=== PATIENT | male | born 1940 | race Native Hawaiian/Other Pacific Islander ===

== ENCOUNTER 2017-11-16 23:03 | Inpatient (IN) | payer MEDICARE, MEDICAID ==
[2017-11-16] MEDS ORDERED: Sodium Chloride 0.9% 1,000 ML IV ONE (23:46)
[2017-11-16 23:47] VITALS: BMI 26.9
--- NOTE | 2017-11-17 00:04 | C.PDOC ---
History Of Present Illness 77 year old male presents to the ED with chief complaint of chronic diarrhea for over 1 month. He has 4-5 episodes daily of watery stool. Associated with abdominal distension and discomfort that is relieved by passing gas. Now complaining of a low grade fever. Patient was seen by Dr. Perez in the office and had full evaluation including cultures, parasite, C diff, which was all negative. + occult blood in stool. Patient is scheduled for colonoscopy at the end of this month. Family brought him in tonight due to 10 lb weight loss since last week associated with fatigue and lightheadednes. He denies nausea or vomiting but patient has lost his appetite and feels dizzy when he gets up. Taking imodium without improvement. Time Seen by Provider: 11/16/17 23:33 Chief Complaint (Nursing): GI Problem History Per: Patient, Family History/Exam Limitations: no limitations Onset/Duration Of Symptoms: Days (> 1 month) Current Symptoms Are (Timing): Still Present Past Medical History Reviewed: Historical Data, Nursing Documentation, Vital Signs Vital Signs: Last Vital Signs Temp 98.6 F 11/17/17 00:00 Pulse 98 H 11/17/17 00:00 Resp 20 11/17/17 00:00 BP 157/72 H 11/17/17 00:00 Pulse Ox 98 11/17/17 00:00 - Medical History PMH: Diabetes, HTN, Hypercholesterolemia, Hyperlipidemia, End Stage Renal Disease - [facility] Procedures CORONAR ARTERIOGR-2 CATH (11/29/05) LEFT HEART CARDIAC CATH (11/29/05) LT HEART ANGIOCARDIOGRAM (11/29/05) Family History: States: No Known Family Hx - Social History Hx Tobacco Use: No Hx Alcohol Use: No Hx Substance Use: No - Immunization History Hx Tetanus Toxoid Vaccination: No Hx Influenza Vaccination: No Hx Pneumococcal Vaccination: No Review Of Systems Except As Marked, All Systems Reviewed And Found Negative. Constitutional: Positive for: Fever, Weight loss, Other (loss of appetite) Cardiovascular: Negative for: Chest Pain Respiratory: Negative for: Shortness of Breath Gastrointestinal: Positive for: Abdominal Pain (discomfort and distension), Diarrhea, Hematochezia. Negative for: Nausea, Vomiting Neurological: Positive for: Dizziness Physical Exam - Physical Exam Appears: No Acute Distress Skin: Dry, Pale, Other (poor turgor) Head: Atraumatic, Normacephalic Eye(s): bilateral: Normal Inspection, PERRL, EOMI Oral Mucosa: Dry Neck: Normal ROM, Supple Chest: Symmetrical Cardiovascular: Rhythm Regular (slightly tachy), No Murmur Respiratory: Normal Breath Sounds, No Rales, No Rhonchi, No Wheezing Gastrointestinal/Abdominal: Soft, No Tenderness, No Guarding, No Rebound Extremity: Bilateral: Atraumatic, Normal ROM Pulses: Left Dorsalis Pedis: Normal, Right Dorsalis Pedis: Normal Neurological/Psych: Oriented x3, Normal Speech ED Course And Treatment - Laboratory Results Result Diagrams: 11/16/17 23:55 11/16/17 23:55 Lab Interpretation: Abnormal (Hgb 11.1m HCO3 16, BUN 32, Cr 1.9) Progress Note: Ordered labs including stool culture. Patient given IVF hydration Reevaluation Time: 00:32 Reassessment Condition: Improved - Physician Consult Information Time Consulting Physician Contacted: 00:32 Physician Contacted: Lori Macario Outcome Of Conversation: Patient to be admitted for rehydration. Disposition - Disposition Disposition: HOSPITALIZED Disposition Time: 00:32 Condition: FAIR - POA Present On Arrival: None - Clinical Impression Clinical Impression: Diarrhea, Dehydration - Scribe Statement The provider has reviewed the documentation as recorded by the Murali Bagley Provider Attestation: All medical record entries made by the Murali were at my direction and personally dictated by me. I have reviewed the chart and agree that the record accurately reflects my personal performance of the history, physical exam, medical decision making, and the department course for this patient. I have also personally directed, reviewed, and agree with the discharge instructions and disposition.
[2017-11-17 00:11] LABS: BASO % 0.3 % (0.0-2.0); EOS % 0.1 % (0.0-4.0); HEMOGLOBIN 11.1 g/dL (12.0-18.0); LYMPH # 1.3 K/uL (1.0-4.3); LYMPH % 13.1 % (20.0-40.0); MEAN CELL VOLUME 94.9 fL (80.0-94.0); MEAN CORPUSCULAR HEMOGLOBIN 32.9 pg (27.0-31.0); MEAN CORPUSCULAR HGB CONC 34.7 g/dL (33.0-37.0); MEAN PLATELET VOLUME 7.2 fL (7.2-11.7); MONO # 1.4 K/uL (0.0-0.8); MONO % 14.5 % (0.0-10.0); NEUT # 7.2 K/uL (1.8-7.0); RBC 3.39 Mil/uL (4.40-5.90); RED CELL DISTRIBUTION WIDTH 13.1 % (11.5-14.5)
[2017-11-17 00:23] LABS: ALB/GLOB RATIO 0.9 (1.0-2.1); ALBUMIN 3.6 g/dL (3.5-5.0); CALCIUM 8.9 mg/dl (8.6-10.4)
[2017-11-17 07:31] LABS: URINE BILIRUBIN NEGATIVE (NEGATIVE); URINE BLOOD 3+ (NEGATIVE); URINE CLARITY Hazy (Clear); URINE COLOR Yellow (YELLOW); URINE GLUCOSE (UA) NORMAL (Normal); URINE LEUKOCYTE ESTERASE NEG Leu/uL (Negative); URINE PROTEIN 2+ mg/dL (NEGATIVE); URINE UROBILINOGEN NORMAL mg/dL (0.2-1.0)
[2017-11-17 07:32] LABS: URINE BACTERIA RARE (<OCC)
[2017-11-17 07:53] LABS: CALCIUM 8.3 mg/dl (8.6-10.4)
[2017-11-17 08:08] LABS: FREE T4 0.86 ng/dL (0.78-2.19)
--- NOTE | 2017-11-17 09:01 | CP.PCM.CON ---
<Jean Paul Gregory - Last Filed: 11/17/17 18:25> History of Present Illness - History of Present Illness History of Present Illness: PGY5 GI Fellow Consult Note Patient is a 77yo male with PMHx significant for DM, CAD s/p CABG and PCI, complicated diverticulitis s/p partial colectomy who presented to the hospital for persistent diarrhea and weight loss. The patient is currently accompanied by his and two daughters. Patient traveled to the [facility] in early September and during trip developed loose watery stool 4-6 times per day. He treated his symptoms with immodium with some relief however symptoms have persisted requiring ongoing Immodium use daily. He was evaluated by his primary medical aides teacher, Dr Perez, with stool cultures and thusfar results are unremarkable. Patient was scheduled for EGD/Colonoscopy at the end of this month however family noted a 10lb weight loss in the past two weeks and decided to have him brought in to the ED for further evaluation. Currently, he admits to continued loose, watery stool 4-6 times per day with or without eating, has decreased appetite and chills. He denies any overt rectal bleeding, nausea, vomiting and has never had symptoms like this previously. Denies any recent antibiotic use or OTC medications/NSAIDs. PMHx: See HPI, also cataracts and glaucoma PSHx: partial colectomy (2002), CABG (1993), PCIx2 (2003), B/L lens replacement FHx: Sister - aneurysm; Brother - lung cancer Social: Former tobacco use (quit in 1988), denies EtOH or illicit drug use Endo: EGD/Colonoscopy - 2014 - colon polyps noted 12 system ROS performed and negative except where stated. Past Patient History - Past Medical History & Family History Past Medical History?: Yes - Past Social History Smoking Status: Never Smoked - CARDIAC Hx Cardiac Disorders: Yes Hx Hypercholesterolemia: Yes Hx Hypertension: Yes - PULMONARY Hx Respiratory Disorders: No - NEUROLOGICAL Hx Neurological Disorder: No - HEENT Hx HEENT Problems: Yes Hx Cataracts: Yes Hx Glaucoma: Yes Other/Comment: lens implant - RENAL Hx Chronic Kidney Disease: No - ENDOCRINE/METABOLIC Hx Endocrine Disorders: Yes Hx Diabetes Mellitus Type 2: Yes - HEMATOLOGICAL/ONCOLOGICAL Hx Blood Disorders: No - INTEGUMENTARY Hx Dermatological Problems: No - MUSCULOSKELETAL/RHEUMATOLOGICAL Hx Falls: No - GASTROINTESTINAL Hx Gastrointestinal Disorders: No - GENITOURINARY/GYNECOLOGICAL Hx Genitourinary Disorders: No - PSYCHIATRIC Hx Substance Use: No - SURGICAL HISTORY Hx Surgeries: No Hx Cholecystectomy: Yes Hx Coronary Artery Bypass Graft: Yes (3 bypass) Other/Comment: stent placement, colectomy 2002, gallbladder, colonoscopy 2014 - ANESTHESIA Hx Anesthesia: No Hx Anesthesia Reactions: No Hx Malignant Hyperthermia: No Has any member of the family had a problem w/ anesthesia?: No Meds Allergies/Adverse Reactions: Allergies Allergy/AdvReac Type Severity Reaction Status Date / Time Penicillins Allergy Verified 11/16/17 23:19 Sulfa (Sulfonamide Allergy Verified 11/16/17 23:19 Antibiotics) - Medications Medications: Current Medications Amlodipine Besylate (Norvasc) 5 mg PO DAILY [facility] Aspirin (Aspirin Chewable) 81 mg PO DAILY [facility] Carvedilol (Coreg) 25 mg PO BID PAL Glimepiride (Amaryl) 1 mg PO DAILY [facility] Heparin Sodium (Porcine) (Heparin) 5,000 units SC Q12 PAL Home Med (Patient's Own Drops) 0 drop OU HS PAL Sodium Chloride (Sodium Chloride 0.45%) 1,000 mls @ 80 mls/hr IV .[id number] PAL Lactobacillus Acidophilus (Bacid Acidophilus) 1 cap PO BID PAL Losartan Potassium (Cozaar) 50 mg PO DAILY PAL Physical Exam - Constitutional Appears: Non-toxic, No Acute Distress - Eye Exam Eye Exam: EOMI, PERRL - ENT Exam ENT Exam: Mucous Membranes Dry - Respiratory Exam Respiratory Exam: Clear to Auscultation Bilateral. absent: Rales, Rhonchi, Wheezes - Cardiovascular Exam Cardiovascular Exam: RRR, +S1, +S2 - GI/Abdominal Exam GI & Abdominal Exam: Normal Bowel Sounds, Soft. absent: Distended, Firm, Guarding, Organomegaly, Rigid, Tenderness - Extremities Exam Extremities exam: Positive for: normal inspection. Negative for: pedal edema, tenderness - Neurological Exam Neurological exam: Alert, Oriented x3 - Psychiatric Exam Psychiatric exam: Normal Affect, Normal Mood - Skin Skin Exam: Dry, Warm Additional comments: healed midline abdominal surgical scar; healed CABG scar Results - Vital Signs Recent Vital Signs: Last Vital Signs Temp 99.9 F H 11/17/17 08:10 Pulse 89 11/17/17 08:10 Resp 20 11/17/17 08:10 BP 143/68 11/17/17 08:10 Pulse Ox 97 11/17/17 08:10 - Labs Result Diagrams: 11/16/17 23:55 11/17/17 07:27 Labs: Laboratory Results - last 24 hr 11/16/17 11/16/17 11/16/17 23:26 23:55 23:55 WBC 10.0 RBC 3.39 L Hgb 11.1 L Hct 32.2 L MCV 94.9 H MCH 32.9 H MCHC 34.7 RDW 13.1 Plt Count 290 MPV 7.2 Neut % (Auto) 72.0 Lymph % (Auto) 13.1 L Pettis % (Auto) 14.5 H Eos % (Auto) 0.1 Baso % (Auto) 0.3 Neut # (Auto) 7.2 H Lymph # (Auto) 1.3 Pettis # (Auto) 1.4 H Eos # (Auto) 0.0 Baso # (Auto) 0.0 Sodium 136 Potassium 5.1 Chloride 105 Carbon Dioxide 16 L Anion Gap 20 BUN 32 H Creatinine 1.9 H Est GFR ( Amer) 42 Est GFR (Non-Af Amer) 34 POC Glucose (mg/dL) 168 H Random Glucose 153 H Hemoglobin A1c Calcium 8.9 Total Bilirubin 0.6 AST 19 ALT 17 L Alkaline Phosphatase 103 Total Protein 7.7 Albumin 3.6 Globulin 4.1 H Albumin/Globulin Ratio 0.9 L Lipase 248 Free T4 TSH 3rd Generation Urine Color Urine Clarity Urine pH Ur Specific [place] Urine Protein Urine Glucose (UA) Urine Ketones Urine Blood Urine Nitrate Urine Bilirubin Urine Urobilinogen Ur Leukocyte Esterase Urine WBC (Auto) Urine RBC (Auto) Urine Bacteria Hyaline Casts 11/17/17 11/17/17 11/17/17 06:28 06:57 07:27 WBC RBC Hgb Hct MCV MCH MCHC RDW Plt Count MPV Neut % (Auto) Lymph % (Auto) Pettis % (Auto) Eos % (Auto) Baso % (Auto) Neut # (Auto) Lymph # (Auto) Pettis # (Auto) Eos # (Auto) Baso # (Auto) Sodium 136 Potassium 4.9 Chloride 109 H Carbon Dioxide 18 L Anion Gap 14 BUN 26 H Creatinine 1.5 Est GFR ( Amer) 55 Est GFR (Non-Af Amer) 45 POC Glucose (mg/dL) 99 Random Glucose 98 Hemoglobin A1c Calcium 8.3 L Total Bilirubin AST ALT Alkaline Phosphatase Total Protein Albumin Globulin Albumin/Globulin Ratio Lipase Free T4 TSH 3rd Generation Urine Color Yellow Urine Clarity Hazy Urine pH 5.0 Ur Specific [place] 1.013 Urine Protein 2+ H Urine Glucose (UA) Normal Urine Ketones Negative Urine Blood 3+ H Urine Nitrate Negative Urine Bilirubin Negative Urine Urobilinogen Normal Ur Leukocyte Esterase Neg Urine WBC (Auto) 2 Urine RBC (Auto) 25 H Urine Bacteria Rare Hyaline Casts 3-5 H 11/17/17 11/17/17 07:27 07:27 WBC RBC Hgb Hct MCV MCH MCHC RDW Plt Count MPV Neut % (Auto) Lymph % (Auto) [place] % (Auto) Eos % (Auto) Baso % (Auto) Neut # (Auto) Lymph # (Auto) Pettis # (Auto) Eos # (Auto) Baso # (Auto) Sodium Potassium Chloride Carbon Dioxide Anion Gap BUN Creatinine Est GFR ( Amer) Est GFR (Non-Af Amer) POC Glucose (mg/dL) Random Glucose Hemoglobin A1c 6.2 Calcium Total Bilirubin AST ALT Alkaline Phosphatase Total Protein Albumin Globulin Albumin/Globulin Ratio Lipase Free T4 0.86 TSH 3rd Generation 0.79 Urine Color Urine Clarity Urine pH Ur Specific [place] Urine Protein Urine Glucose (UA) Urine Ketones Urine Blood Urine Nitrate Urine Bilirubin Urine Urobilinogen Ur Leukocyte Esterase Urine WBC (Auto) Urine RBC (Auto) Urine Bacteria Hyaline Casts Assessment & Plan - Assessment and Plan (Free Text) Assessment: Patient is a 77yo male with PMHx significant for DM, CAD s/p CABG and PCI, complicated diverticulitis s/p partial colectomy who presented to the hospital for persistent diarrhea and weight loss -Chronic diarrhea -Unintentional weight loss -H/O complicated diverticulitis with partial colectomy -DM -CAD Plan: -Stool infectious work up: Culture, C diff, giardia, O&P -Check fecal leukocytes, osmolality and electrolytes -Positive FOBT as outpatient -CT abdomen and pelvis with PO contrast -Recommend empiric coverage with Cipro/Flagyl -Liquid diet today -Patient would benefit from EGD/Colonoscopy if symptoms persist despite therapy - Date & Time Date: 11/17/17 Time: 08:45 <Young Ceballos - Last Filed: 11/17/17 18:36> Meds - Medications Medications: Current Medications Amlodipine Besylate (Norvasc) 5 mg PO DAILY [facility] Last Admin: 11/17/17 11:00 Dose: Not Given Aspirin (Aspirin Chewable) 81 mg PO DAILY [facility] Last Admin: 11/17/17 13:38 Dose: 81 mg Carvedilol (Coreg) 25 mg PO BID [facility] Last Admin: 11/17/17 17:34 Dose: 25 mg Glimepiride (Amaryl) 1 mg PO DAILY [facility] Last Admin: 11/17/17 10:52 Dose: 1 mg Heparin Sodium (Porcine) (Heparin) 5,000 units SC Q12 [facility] Last Admin: 11/17/17 11:00 Dose: Not Given Home Med (Patient's Own Drops) 0 drop OU HS [facility] Sodium Chloride (Sodium Chloride 0.45%) 1,000 mls @ 80 mls/hr IV .[id number] [facility] Last Admin: 11/17/17 15:30 Dose: Not Given Ciprofloxacin (Cipro 200mg/100ml D5w) 100 mls @ 67 mls/hr IVPB Q12H [facility] PRN Reason: Protocol Last Admin: 11/17/17 16:00 Dose: 67 mls/hr Metronidazole (Flagyl) 500 mg in 100 mls @ 100 mls/hr IVPB Q8 PAL PRN Reason: Protocol Lactobacillus Acidophilus (Bacid Acidophilus) 1 cap PO BID [facility] Last Admin: 11/17/17 17:34 Dose: 1 cap Losartan Potassium (Cozaar) 50 mg PO DAILY [facility] Last Admin: 11/17/17 10:52 Dose: 50 mg Results - Vital Signs Recent Vital Signs: Last Vital Signs Temp 97.7 F 11/17/17 15:33 Pulse 62 11/17/17 15:33 Resp 20 11/17/17 15:33 BP 126/67 11/17/17 17:34 Pulse Ox 97 11/17/17 15:33 - Labs Result Diagrams: 11/16/17 23:55 11/17/17 07:27 Labs: Laboratory Results - last 24 hr 11/16/17 11/16/17 11/16/17 23:26 23:55 23:55 WBC 10.0 RBC 3.39 L Hgb 11.1 L Hct 32.2 L MCV 94.9 H MCH 32.9 H MCHC 34.7 RDW 13.1 Plt Count 290 MPV 7.2 Neut % (Auto) 72.0 Lymph % (Auto) 13.1 L Pett[place] % (Auto) 14.5 H Eos % (Auto) 0.1 Baso % (Auto) 0.3 Neut # (Auto) 7.2 H Lymph # (Auto) 1.3 Pettis # (Auto) 1.4 H Eos # (Auto) 0.0 Baso # (Auto) 0.0 Sodium 136 Potassium 5.1 Chloride 105 Carbon Dioxide 16 L Anion Gap 20 BUN 32 H Creatinine 1.9 H Est GFR ( Amer) 42 Est GFR (Non-Af Amer) 34 POC Glucose (mg/dL) 168 H Random Glucose 153 H Hemoglobin A1c Calcium 8.9 Total Bilirubin 0.6 AST 19 ALT 17 L Alkaline Phosphatase 103 Total Protein 7.7 Albumin 3.6 Globulin 4.1 H Albumin/Globulin Ratio 0.9 L Lipase 248 Free T4 TSH 3rd Generation Urine Color Urine Clarity Urine pH Ur Specific [place] Urine Protein Urine Glucose (UA) Urine Ketones Urine Blood Urine Nitrate Urine Bilirubin Urine Urobilinogen Ur Leukocyte Esterase Urine WBC (Auto) Urine RBC (Auto) Ur Squamous Epith Cells Urine Bacteria Hyaline Casts 11/17/17 11/17/17 11/17/17 06:28 06:57 07:27 WBC RBC Hgb Hct MCV MCH MCHC RDW Plt Count MPV Neut % (Auto) Lymph % (Auto) [place] % (Auto) Eos % (Auto) Baso % (Auto) Neut # (Auto) Lymph # (Auto) P[place]is # (Auto) Eos # (Auto) Baso # (Auto) Sodium 136 Potassium 4.9 Chloride 109 H Carbon Dioxide 18 L Anion Gap 14 BUN 26 H Creatinine 1.5 Est GFR ( Amer) 55 Est GFR (Non-Af Amer) 45 POC Glucose (mg/dL) 99 Random Glucose 98 Hemoglobin A1c Calcium 8.3 L Total Bilirubin AST ALT Alkaline Phosphatase Total Protein Albumin Globulin Albumin/Globulin Ratio Lipase Free T4 TSH 3rd Generation Urine Color Yellow Urine Clarity Hazy Urine pH 5.0 Ur Specific [place] 1.013 Urine Protein 2+ H Urine Glucose (UA) Normal Urine Ketones Negative Urine Blood 3+ H Urine Nitrate Negative Urine Bilirubin Negative Urine Urobilinogen Normal Ur Leukocyte Esterase Neg Urine WBC (Auto) 2 Urine RBC (Auto) 25 H Ur Squamous Epith Cells Urine Bacteria Rare Hyaline Casts 3-5 H 11/17/17 11/17/17 11/17/17 07:27 07:27 11:05 WBC RBC Hgb Hct MCV MCH MCHC RDW Plt Count MPV Neut % (Auto) Lymph % (Auto) [place] % (Auto) Eos % (Auto) Baso % (Auto) Neut # (Auto) Lymph # (Auto) P[place] # (Auto) Eos # (Auto) Baso # (Auto) Sodium Potassium Chloride Carbon Dioxide Anion Gap BUN Creatinine Est GFR ( Amer) Est GFR (Non-Af Amer) POC Glucose (mg/dL) 115 H Random Glucose Hemoglobin A1c 6.2 Calcium Total Bilirubin AST ALT Alkaline Phosphatase Total Protein Albumin Globulin Albumin/Globulin Ratio Lipase Free T4 0.86 TSH 3rd Generation 0.79 Urine Color Urine Clarity Urine pH Ur Specific [place] Urine Protein Urine Glucose (UA) Urine Ketones Urine Blood Urine Nitrate Urine Bilirubin Urine Urobilinogen Ur Leukocyte Esterase Urine WBC (Auto) Urine RBC (Auto) Ur Squamous Epith Cells Urine Bacteria Hyaline Casts 11/17/17 11/17/17 11/17/17 16:05 16:11 16:12 WBC RBC Hgb Hct MCV MCH MCHC RDW Plt Count MPV Neut % (Auto) Lymph % (Auto) [place] % (Auto) Eos % (Auto) Baso % (Auto) Neut # (Auto) Lymph # (Auto) P[place] # (Auto) Eos # (Auto) Baso # (Auto) Sodium Potassium Chloride Carbon Dioxide Anion Gap BUN Creatinine Est GFR ( Amer) Est GFR (Non-Af Amer) POC Glucose (mg/dL) 68 73 Random Glucose Hemoglobin A1c Calcium Total Bilirubin AST ALT Alkaline Phosphatase Total Protein Albumin Globulin Albumin/Globulin Ratio Lipase Free T4 TSH 3rd Generation Urine Color Colorless Urine Clarity Clear Urine pH 5.0 Ur Specific [place] 1.003 Urine Protein 1+ H Urine Glucose (UA) Normal Urine Ketones Negative Urine Blood 3+ H Urine Nitrate Negative Urine Bilirubin Negative Urine Urobilinogen Normal Ur Leukocyte Esterase Neg Urine WBC (Auto) < 1 Urine RBC (Auto) 13 H Ur Squamous Epith Cells < 1 Urine Bacteria Hyaline Casts 0-2 11/17/17 17:27 WBC RBC Hgb Hct MCV MCH MCHC RDW Plt Count MPV Neut % (Auto) Lymph % (Auto) [place] % (Auto) Eos % (Auto) Baso % (Auto) Neut # (Auto) Lymph # (Auto) [place] # (Auto) Eos # (Auto) Baso # (Auto) Sodium Potassium Chloride Carbon Dioxide Anion Gap BUN Creatinine Est GFR ( Amer) Est GFR (Non-Af Amer) POC Glucose (mg/dL) 85 Random Glucose Hemoglobin A1c Calcium Total Bilirubin AST ALT Alkaline Phosphatase Total Protein Albumin Globulin Albumin/Globulin Ratio Lipase Free T4 TSH 3rd Generation Urine Color Urine Clarity Urine pH Ur Specific [place] Urine Protein Urine Glucose (UA) Urine Ketones Urine Blood Urine Nitrate Urine Bilirubin Urine Urobilinogen Ur Leukocyte Esterase Urine WBC (Auto) Urine RBC (Auto) Ur Squamous Epith Cells Urine Bacteria Hyaline Casts Attending/Attestation - Attestation I have personally seen and examined this patient.: Yes I have fully participated in the care of the patient.: Yes I have reviewed all pertinent clinical information: Yes Notes (Text): 11/17/17 18:29 I have seen and examined patient with GI fellow. Agree with above documentation with the following additions. In brief, this is a 77 year old male with history of DM, HTN, CAD/CABG, complicated diverticulitis requiring partial colectomy, who presents to hospital with complaint of persistent diarrhea. He describes symptom onset during recent trip to [facility] in September 2017. Prior to this he was in usual state of health. He endorses while on trip he began to develop watery diarrhea with bowel movements up to 6 times per day without presence of blood. Since returning home his change in bowel habits has persisted despite dietary changes. He denies abdominal pain, nausea, vomiting, fever/chills, unusual food consumption, sick contacts, or recent antibiotic use. He had outpatient stool testing performed which was negative and has been maintained on immodium therapy. He does report a nearly 10 pound weight loss since symptom onset. He had a colonoscopy [place] [address] Perez which was apparently normal. DM HTN CAD/CABG History of diverticulitis s/p partial colectomy Diarrhea - unexplained - Liquid diet as tolerated - Obtain stool studies (culture, c-difficile, O/P) - Obtain contrast enhanced CT imaging for further evaluation of bowel, r/o colitis - Continue with empiric antibiotic therapy, follow up ID recommendations - If symptoms persist despite medical management, would consider endoscopic evaluation. Will continue to monitor patient clinical course.
[2017-11-17] MEDS: Lactobacillus Acidophilus 500 MU Cap PO SCH ×2 (10:52→17:34)
[2017-11-17] MEDS ORDERED: Iohexol 240 (50 ml) PO ONE (11:00)
[2017-11-17] MEDS: Sodium Chloride 0.45% 1,000 ML IV SCH ×3 (11:07→21:53)
--- NOTE | 2017-11-17 14:32 | CP.PCM.HP ---
History of Present Illness - History of Present Illness History of Present Illness: Patient is a 77yo male with PMHx significant for DM, CAD s/p CABG and PCI, s/p partial colectomy >10 years ago for early stage Ca of the Colon who presented to the hospital for persistent diarrhea and weight loss. Patient traveled to the [facility] in early September and during trip developed loose watery stool 4 -6 times per day. He treated his symptoms with immodium with some relief however symptoms have persisted requiring ongoing Immodium use daily. He was evaluated by his primary gauge maker, Dr Perez, with stool cultures and thus far results are unremarkable. Patient was scheduled for EGD/Colonoscopy at the end of this month however family noted a 10lb weight loss in the past two weeks and decided to have him brought in to the ED for further evaluation. Currently, he admits to continued loose, watery stool 4-6 times per day with or without eating, loss of appetite and chills. He denies any overt rectal bleeding , nausea, vomiting and has never had symptoms like this previously. Denies any recent antibiotic use or OTC medications/NSAIDs. PMHx-CAD, S/P CABG and PCI, DM, HTN, history of Clostridium difficile infection in the past after treatment with antibiotics for acute diverticulitis PSHx: partial colectomy (2002) for Ca of the Colon (no nodes, no chemo or radiation done then), CABG (1993), PCIx2 (2003), B/L lens replacement after cataract surgery and glaucoma FHx: Sister - aneurysm; Brother - lung cancer Social: Former tobacco use (quit in 1988), denies EtOH or illicit drug use Endo: EGD/Colonoscopy - 2014 - colon polyps noted Present on Admission - Present on Admission Any Indicators Present on Admission: No History of DVT/PE: No History of Uncontrolled Diabetes: No Urinary Catheter: No Decubitus Ulcer Present: No Review of Systems - Review of Systems All systems: reviewed and no additional remarkable complaints except - EENT Eyes: As Per HPI - Cardiovascular Cardiovascular: As Per HPI - Respiratory Respiratory: As Per HPI - Gastrointestinal Gastrointestinal: Abdominal Pain, Change in Bowel Habits, Diarrhea, Loose Stools Past Patient History - Infectious Disease Hx of Infectious Diseases: C.diff - Past Medical History & Family History Past Medical History?: Yes - Past Social History Smoking Status: Never Smoked - CARDIAC Hx Cardiac Disorders: Yes Hx Hypercholesterolemia: Yes Hx Hypertension: Yes - PULMONARY Hx Respiratory Disorders: No - NEUROLOGICAL Hx Neurological Disorder: No - HEENT Hx HEENT Problems: Yes Hx Cataracts: Yes Hx Glaucoma: Yes Other/Comment: lens implant - RENAL Hx Chronic Kidney Disease: No - ENDOCRINE/METABOLIC Hx Endocrine Disorders: Yes Hx Diabetes Mellitus Type 2: Yes - HEMATOLOGICAL/ONCOLOGICAL Hx Blood Disorders: No Hx Cancer: Yes (Cancer of the Colon S/P hemicolectomy) Hx Chemotherapy: No Hx Metastesis: No - INTEGUMENTARY Hx Dermatological Problems: No - MUSCULOSKELETAL/RHEUMATOLOGICAL Hx Falls: No - GASTROINTESTINAL Hx Gastrointestinal Disorders: No Hx Clostridium Difficile: Yes (>10 years ago after treatment with antibiotics for acute diverticulitis) Hx Colitis: Yes Hx Diarrhea: Yes - GENITOURINARY/GYNECOLOGICAL Hx Genitourinary Disorders: No - PSYCHIATRIC Hx Substance Use: No - SURGICAL HISTORY Hx Surgeries: No Hx Cholecystectomy: Yes Hx Coronary Artery Bypass Graft: Yes (3 bypass) Other/Comment: stent placement, colectomy 2002, gallbladder, colonoscopy 2014 - ANESTHESIA Hx Anesthesia: No Hx Anesthesia Reactions: No Hx Malignant Hyperthermia: No Has any member of the family had a problem w/ anesthesia?: No Meds Allergies/Adverse Reactions: Allergies Allergy/AdvReac Type Severity Reaction Status Date / Time Penicillins Allergy Verified 11/16/17 23:19 Sulfa (Sulfonamide Allergy Verified 11/16/17 23:19 Antibiotics) Physical Exam - Constitutional Appears: No Acute Distress - Head Exam Head Exam: NORMAL INSPECTION - Eye Exam Eye Exam: Normal appearance - ENT Exam ENT Exam: Mucous Membranes Moist, Normal Exam - Neck Exam Neck exam: Positive for: Normal Inspection - Respiratory Exam Respiratory Exam: Clear to Auscultation Bilateral, NORMAL BREATHING PATTERN - Cardiovascular Exam Cardiovascular Exam: REGULAR RHYTHM, RRR, +S1, +S2 - GI/Abdominal Exam GI & Abdominal Exam: Normal Bowel Sounds, Soft - Rectal Exam Rectal Exam: Deferred - Extremities Exam Extremities exam: Positive for: normal inspection - Neurological Exam Neurological exam: Alert, Normal Gait, Oriented x3 - Psychiatric Exam Psychiatric exam: Normal Affect, Normal Mood - Skin Skin Exam: Dry, Intact, Normal Color, Warm Results - Vital Signs Recent Vital Signs: Last Vital Signs Temp 99.9 F H 11/17/17 08:10 Pulse 89 11/17/17 08:10 Resp 20 04/05/18 08:10 BP 123/66 11/17/17 10:55 Pulse Ox 97 11/17/17 12:08 - Labs Result Diagrams: 11/16/17 23:55 11/17/17 07:27 Labs: Laboratory Results - last 24 hr 11/16/17 11/16/17 11/16/17 23:26 23:55 23:55 WBC 10.0 RBC 3.39 L Hgb 11.1 L Hct 32.2 L MCV 94.9 H MCH 32.9 H MCHC 34.7 RDW 13.1 Plt Count 290 MPV 7.2 Neut % (Auto) 72.0 Lymph % (Auto) 13.1 L [place] % (Auto) 14.5 H Eos % (Auto) 0.1 Baso % (Auto) 0.3 Neut # (Auto) 7.2 H Lymph # (Auto) 1.3 [place] # (Auto) 1.4 H Eos # (Auto) 0.0 Baso # (Auto) 0.0 Sodium 136 Potassium 5.1 Chloride 105 Carbon Dioxide 16 L Anion Gap 20 BUN 32 H Creatinine 1.9 H Est GFR ( Amer) 42 Est GFR (Non-Af Amer) 34 POC Glucose (mg/dL) 168 H Random Glucose 153 H Hemoglobin A1c Calcium 8.9 Total Bilirubin 0.6 AST 19 ALT 17 L Alkaline Phosphatase 103 Total Protein 7.7 Albumin 3.6 Globulin 4.1 H Albumin/Globulin Ratio 0.9 L Lipase 248 Free T4 TSH 3rd Generation Urine Color Urine Clarity Urine pH Ur Specific [place] Urine Protein Urine Glucose (UA) Urine Ketones Urine Blood Urine Nitrate Urine Bilirubin Urine Urobilinogen Ur Leukocyte Esterase Urine WBC (Auto) Urine RBC (Auto) Urine Bacteria Hyaline Casts 11/17/17 11/17/17 11/17/17 06:28 06:57 07:27 WBC RBC Hgb Hct MCV MCH MCHC RDW Plt Count MPV Neut % (Auto) Lymph % (Auto) [place] % (Auto) Eos % (Auto) Baso % (Auto) Neut # (Auto) Lymph # (Auto) [place] # (Auto) Eos # (Auto) Baso # (Auto) Sodium 136 Potassium 4.9 Chloride 109 H Carbon Dioxide 18 L Anion Gap 14 BUN 26 H Creatinine 1.5 Est GFR ( Amer) 55 Est GFR (Non-Af Amer) 45 POC Glucose (mg/dL) 99 Random Glucose 98 Hemoglobin A1c Calcium 8.3 L Total Bilirubin AST ALT Alkaline Phosphatase Total Protein Albumin Globulin Albumin/Globulin Ratio Lipase Free T4 TSH 3rd Generation Urine Color Yellow Urine Clarity Hazy Urine pH 5.0 Ur Specific [place] 1.013 Urine Protein 2+ H Urine Glucose (UA) Normal Urine Ketones Negative Urine Blood 3+ H Urine Nitrate Negative Urine Bilirubin Negative Urine Urobilinogen Normal Ur Leukocyte Esterase Neg Urine WBC (Auto) 2 Urine RBC (Auto) 25 H Urine Bacteria Rare Hyaline Casts 3-5 H 11/17/17 11/17/17 11/17/17 07:27 07:27 11:05 WBC RBC Hgb Hct MCV MCH MCHC RDW Plt Count MPV Neut % (Auto) Lymph % (Auto) [place] % (Auto) Eos % (Auto) Baso % (Auto) Neut # (Auto) Lymph # (Auto) [place] # (Auto) Eos # (Auto) Baso # (Auto) Sodium Potassium Chloride Carbon Dioxide Anion Gap BUN Creatinine Est GFR ( Amer) Est GFR (Non-Af Amer) POC Glucose (mg/dL) 115 H Random Glucose Hemoglobin A1c 6.2 Calcium Total Bilirubin AST ALT Alkaline Phosphatase Total Protein Albumin Globulin Albumin/Globulin Ratio Lipase Free T4 0.86 TSH 3rd Generation 0.79 Urine Color Urine Clarity Urine pH Ur Specific [place] Urine Protein Urine Glucose (UA) Urine Ketones Urine Blood Urine Nitrate Urine Bilirubin Urine Urobilinogen Ur Leukocyte Esterase Urine WBC (Auto) Urine RBC (Auto) Urine Bacteria Hyaline Casts Assessment & Plan (1) Diarrhea of presumed infectious origin Assessment and Plan: GI and ID consults requested. Stool studies in progress. CT Scan of the Abdomen done. Started empirically on Cipro and Flagyl Status: Acute (2) Dehydration Assessment and Plan: Due to diarrhea and poor oral intake. On IVF infusion. Monitor BMP Status: Acute (3) Prerenal azotemia Assessment and Plan: may be from dehydration. ON IVF infusion. Elevated BUN/creatinine may also be due to chronic renal insufficiency due to DM Status: Acute (4) Type 2 diabetes mellitus Assessment and Plan: controlled. HgbA1c- 6.2 Status: Chronic (5) CAD (coronary artery disease) Assessment and Plan: stable. Continue current meds Status: Chronic (6) Hypertension Assessment and Plan: controlled. Status: Chronic Decision To Admit - Pt Status Changed To: Hospital Disposition Of: Inpatient - Admit Certification Admit to Inpatient:: After my assessment, the patient will require hospitalization for at least two midnights. This is because of the severity of symptoms shown, intensity of services needed, and/or the medical risk in this patient being treated as an outpatient. - InPatient: Physician Admission Certification:: After my assessment, the patient will require hospitalization for at least two midnights. This is because of the severity of symptoms shown, intensity of services needed, and/or the medical risk in this patient being treated as an outpatient. - . Bed Request Type: Telemetry Admitting Physician: Lori Macario
--- NOTE | 2017-11-17 14:46 | CP.PCM.CON ---
Past Patient History - Past Medical History & Family History Past Medical History?: Yes - Past Social History Smoking Status: Never Smoked - CARDIAC Hx Cardiac Disorders: Yes Hx Hypercholesterolemia: Yes Hx Hypertension: Yes - PULMONARY Hx Respiratory Disorders: No - NEUROLOGICAL Hx Neurological Disorder: No - HEENT Hx HEENT Problems: Yes Hx Cataracts: Yes Hx Glaucoma: Yes Other/Comment: lens implant - RENAL Hx Chronic Kidney Disease: No - ENDOCRINE/METABOLIC Hx Endocrine Disorders: Yes Hx Diabetes Mellitus Type 2: Yes - HEMATOLOGICAL/ONCOLOGICAL Hx Blood Disorders: No Hx Cancer: Yes (Cancer of the Colon S/P hemicolectomy) Hx Chemotherapy: No Hx Metastesis: No - INTEGUMENTARY Hx Dermatological Problems: No - MUSCULOSKELETAL/RHEUMATOLOGICAL Hx Falls: No - GASTROINTESTINAL Hx Gastrointestinal Disorders: No Hx Clostridium Difficile: Yes (>10 years ago after treatment with antibiotics for acute diverticulitis) Hx Colitis: Yes Hx Diarrhea: Yes - GENITOURINARY/GYNECOLOGICAL Hx Genitourinary Disorders: No - PSYCHIATRIC Hx Substance Use: No - SURGICAL HISTORY Hx Surgeries: No Hx Cholecystectomy: Yes Hx Coronary Artery Bypass Graft: Yes (3 bypass) Other/Comment: stent placement, colectomy 2002, gallbladder, colonoscopy 2014 - ANESTHESIA Hx Anesthesia: No Hx Anesthesia Reactions: No Hx Malignant Hyperthermia: No Has any member of the family had a problem w/ anesthesia?: No Meds Allergies/Adverse Reactions: Allergies Allergy/AdvReac Type Severity Reaction Status Date / Time Penicillins Allergy Verified 11/16/17 23:19 Sulfa (Sulfonamide Allergy Verified 11/16/17 23:19 Antibiotics) - Medications Medications: Current Medications Amlodipine Besylate (Norvasc) 5 mg PO DAILY [facility] Last Admin: 11/17/17 11:00 Dose: Not Given Aspirin (Aspirin Chewable) 81 mg PO DAILY [facility] Last Admin: 11/17/17 13:38 Dose: 81 mg Carvedilol (Coreg) 25 mg PO BID [facility] Last Admin: 11/17/17 10:55 Dose: 25 mg Glimepiride (Amaryl) 1 mg PO DAILY [facility] Last Admin: 11/17/17 10:52 Dose: 1 mg Heparin Sodium (Porcine) (Heparin) 5,000 units SC Q12 [facility] Last Admin: 11/17/17 11:00 Dose: Not Given Home Med (Patient's Own Drops) 0 drop OU HS [facility] Sodium Chloride (Sodium Chloride 0.45%) 1,000 mls @ 80 mls/hr IV .[id number] [facility] Last Admin: 11/17/17 11:07 Dose: Not Given Ciprofloxacin (Cipro 200mg/100ml D5w) 100 mls @ 67 mls/hr IVPB Q12H PAL PRN Reason: Protocol Metronidazole (Flagyl) 500 mg in 100 mls @ 100 mls/hr IVPB Q8 PAL PRN Reason: Protocol Lactobacillus Acidophilus (Bacid Acidophilus) 1 cap PO BID [facility] Last Admin: 11/17/17 10:52 Dose: 1 cap Losartan Potassium (Cozaar) 50 mg PO DAILY [facility] Last Admin: 11/17/17 10:52 Dose: 50 mg Results - Vital Signs Recent Vital Signs: Last Vital Signs Temp 99.9 F H 11/17/17 08:10 Pulse 89 11/17/17 08:10 Resp 20 11/17/17 08:10 BP 123/66 11/17/17 10:55 Pulse Ox 97 11/17/17 12:08 - Labs Result Diagrams: 11/16/17 23:55 11/17/17 07:27 Labs: Laboratory Results - last 24 hr 11/16/17 11/16/17 11/16/17 23:26 23:55 23:55 WBC 10.0 RBC 3.39 L Hgb 11.1 L Hct 32.2 L MCV 94.9 H MCH 32.9 H MCHC 34.7 RDW 13.1 Plt Count 290 MPV 7.2 Neut % (Auto) 72.0 Lymph % (Auto) 13.1 L [place] % (Auto) 14.5 H Eos % (Auto) 0.1 Baso % (Auto) 0.3 Neut # (Auto) 7.2 H Lymph # (Auto) 1.3 [place] # (Auto) 1.4 H Eos # (Auto) 0.0 Baso # (Auto) 0.0 Sodium 136 Potassium 5.1 Chloride 105 Carbon Dioxide 16 L Anion Gap 20 BUN 32 H Creatinine 1.9 H Est GFR ( Amer) 42 Est GFR (Non-Af Amer) 34 POC Glucose (mg/dL) 168 H Random Glucose 153 H Hemoglobin A1c Calcium 8.9 Total Bilirubin 0.6 AST 19 ALT 17 L Alkaline Phosphatase 103 Total Protein 7.7 Albumin 3.6 Globulin 4.1 H Albumin/Globulin Ratio 0.9 L Lipase 248 Free T4 TSH 3rd Generation Urine Color Urine Clarity Urine pH Ur Specific [place] Urine Protein Urine Glucose (UA) Urine Ketones Urine Blood Urine Nitrate Urine Bilirubin Urine Urobilinogen Ur Leukocyte Esterase Urine WBC (Auto) Urine RBC (Auto) Urine Bacteria Hyaline Casts 11/17/17 11/17/17 11/17/17 06:28 06:57 07:27 WBC RBC Hgb Hct MCV MCH MCHC RDW Plt Count MPV Neut % (Auto) Lymph % (Auto) [place] % (Auto) Eos % (Auto) Baso % (Auto) Neut # (Auto) Lymph # (Auto) [place] # (Auto) Eos # (Auto) Baso # (Auto) Sodium 136 Potassium 4.9 Chloride 109 H Carbon Dioxide 18 L Anion Gap 14 BUN 26 H Creatinine 1.5 Est GFR ( Amer) 55 Est GFR (Non-Af Amer) 45 POC Glucose (mg/dL) 99 Random Glucose 98 Hemoglobin A1c Calcium 8.3 L Total Bilirubin AST ALT Alkaline Phosphatase Total Protein Albumin Globulin Albumin/Globulin Ratio Lipase Free T4 TSH 3rd Generation Urine Color Yellow Urine Clarity Hazy Urine pH 5.0 Ur Specific [place] 1.013 Urine Protein 2+ H Urine Glucose (UA) Normal Urine Ketones Negative Urine Blood 3+ H Urine Nitrate Negative Urine Bilirubin Negative Urine Urobilinogen Normal Ur Leukocyte Esterase Neg Urine WBC (Auto) 2 Urine RBC (Auto) 25 H Urine Bacteria Rare Hyaline Casts 3-5 H 11/17/17 11/17/17 11/17/17 07:27 07:27 11:05 WBC RBC Hgb Hct MCV MCH MCHC RDW Plt Count MPV Neut % (Auto) Lymph % (Auto) [place] % (Auto) Eos % (Auto) Baso % (Auto) Neut # (Auto) Lymph # (Auto) [place] # (Auto) Eos # (Auto) Baso # (Auto) Sodium Potassium Chloride Carbon Dioxide Anion Gap BUN Creatinine Est GFR ( Amer) Est GFR (Non-Af Amer) POC Glucose (mg/dL) 115 H Random Glucose Hemoglobin A1c 6.2 Calcium Total Bilirubin AST ALT Alkaline Phosphatase Total Protein Albumin Globulin Albumin/Globulin Ratio Lipase Free T4 0.86 TSH 3rd Generation 0.79 Urine Color Urine Clarity Urine pH Ur Specific [place] Urine Protein Urine Glucose (UA) Urine Ketones Urine Blood Urine Nitrate Urine Bilirubin Urine Urobilinogen Ur Leukocyte Esterase Urine WBC (Auto) Urine RBC (Auto) Urine Bacteria Hyaline Casts
--- NOTE | 2017-11-17 15:04 | CT ---
PROCEDURE: CT Abdomen and Pelvis with contrast HISTORY: chronic diarrhea, weight loss COMPARISON: None. TECHNIQUE: Helical CT of the abdomen and pelvis was performed following oral contrast administration. Intravenous contrast was not administered as per referring physician request. Contrast dose: None Radiation dose: Total exam DLP = 1093.55 mGy-cm. This CT exam was performed using one or more of the following dose reduction techniques: Automated exposure control, adjustment of the mA and/or kV according to patient size, and/or use of iterative reconstruction technique. FINDINGS: LOWER THORAX: Cardiomegaly. No pleural or pericardial effusion. No infiltrates bilaterally. LIVER: A tiny granuloma is seen in the right lobe posteriorly with remainder of the liver unremarkable in this unenhanced examination. . No gross lesion or ductal dilatation. GALLBLADDER AND BILE DUCTS: Prior cholecystectomy. PANCREAS: Unremarkable. No gross lesion or ductal dilatation. SPLEEN: Unremarkable. ADRENALS: Unremarkable. No mass. KIDNEYS AND URETERS: Nonspecific streaky perinephric changes are identified bilaterally. No hydronephrosis or radiodense urolithiasis associated. VASCULATURE: Non aneurysmal aortic iliac atherosclerosis appears moderate in severity. BOWEL: The stomach is distended with retained food oral contrast. The bowel does not appear obstructed. No suspicious mural thickening is appreciate or diverticular change. A small umbilical hernia is identified containing only mesenteric fat with a similar small supraumbilical hernia. A small additional supraumbilical hernia is seen further cephalad at the midline anterior abdominal wall staining a short segment of small bowel without obvious incarceration pattern. APPENDIX: Not identified. PERITONEUM: Unremarkable. No free fluid. No free air. LYMPH NODES: Unremarkable. No enlarged lymph nodes. BLADDER: Unremarkable. REPRODUCTIVE: Moderate prostate gland enlargement is identified with central calcifications. BONES: No acute fracture. OTHER FINDINGS: None. IMPRESSION: No bowel obstruction or mesenteric edema is appreciated. There a few small ventral abdominal hernia is appreciated including the umbilical and supraumbilical local midline anterior abdominal wall with the most cephalad involving a very short segment of bowel without incarceration. No obvious CT pattern of colitis.
[2017-11-17] MEDS: Ciprofloxacin 200mg/100ml D5W 100 ML IVPB SCH (16:00)
[2017-11-17 16:15] LABS: SQUAMOUS EPITHIAL < 1 /hpf (0-5); URINE BILIRUBIN NEGATIVE (NEGATIVE); URINE BLOOD 3+ (NEGATIVE); URINE CLARITY Clear (Clear); URINE COLOR Colorless (YELLOW); URINE GLUCOSE (UA) NORMAL (Normal); URINE HYALINE CAST 0-2 /lpf (0-2); URINE LEUKOCYTE ESTERASE NEG Leu/uL (Negative); URINE PROTEIN 1+ mg/dL (NEGATIVE); URINE UROBILINOGEN NORMAL mg/dL (0.2-1.0)
--- NOTE | 2017-11-17 17:03 | RAD ---
HISTORY: if not done yesterday on admission COMPARISON: Portable chest 02/07/2013. FINDINGS: LUNGS: No active pulmonary disease. PLEURA: No significant pleural effusion identified, no pneumothorax apparent. CARDIOVASCULAR: Mild cardiomegaly again appreciated as well as post CABG operative changes. No pulmonary vascular derangement identified. OSSEOUS STRUCTURES: No significant abnormalities. VISUALIZED UPPER ABDOMEN: Normal. OTHER FINDINGS: None. IMPRESSION: No acute cardiopulmonary is appreciable. Stable mild cardiomegaly.
[2017-11-17] MEDS: metroNIDAZOLE IV 500 mg/100 ml 500 MG/100 ML BAG IVPB SCH (21:51)
[2017-11-17] MEDS: BIMATOPROST OU SCH (21:53)
[2017-11-18] MEDS: Ciprofloxacin 200mg/100ml D5W 100 ML IVPB SCH ×2 (02:59→15:00)
--- NOTE | 2017-11-18 04:06 | CON ---
DATE: INFECTIOUS DISEASE CONSULT REQUESTING PHYSICIAN: Lori Macario MD HISTORY OF PRESENT ILLNESS: The patient is a 77-year-old male. He was able to give me history plus his daughter was at the bedside. He has history of diabetes. He had a CABG done long time ago and then he also had stents placed, and he had a colectomy done for a cancer, this was long time ago. He was in [facility] and just returned in late September. While coming back, he said last week, he developed diarrhea and loose bowel movements . He was having BM, and he had to be treated with Imodium even on the plane, and he says it continues, it is watery, and after he passes stools he feels chills also, and his family noticed that he lost 10 pounds. He used to be 176 pounds and he became 167 pounds in a matter of a week. He denies any active bleeding, denies any nausea or vomiting. He does say he has diarrhea, and he says that even after colectomy, he used to have normal bowels and he was fine before he went to [facility]. Past medical history is also significant for diabetes, coronary artery disease, CABG, stent placements, and he had a colon cancer which was resected in 2002, and also he had bilateral lens implants for cataract, and he suffers from glaucoma. FAMILY HISTORY: Significant for brother having lung cancer and sister has aneurysm. SOCIAL HISTORY: He smoked until 1988, and [place] came [place] this country, he stopped it. He did have CABG in 1993. He denies any alcohol or drug abuse. He also had endoscopy done in 2014 and according to the GI, it shows that he had colon polyps at that time. He is allergic to penicillin and sulfa. Also I am told that he has renal insufficiency. PAST MEDICAL HISTORY: He is an ex-smoker. He smoked till 1988, and he has cardiac issues with high cholesterol, hypertension, coronary artery disease. He denies any respiratory issues but the daughter said that when he stopped smoking, he was still having blackish sputum but that was like 30 years ago, and he has cataract and glaucoma in both the eyes. He has no difficulty swallowing. He does have eye surgery in both eyes and he uses glaucoma drops. Endocrine: Has diabetes type 2. Has no hematological problems. No history of falls. He does have GI symptoms of diarrhea. Denies any nausea and vomiting. He does complain of some chills. He has no urinary complaints. SURGICAL HISTORY: Noted as above. ALLERGIES: HE IS ALLERGIC TO PENICILLIN AND SULFA AT PRESENT. He does have renal insufficiency also. MEDICATIONS AT HOME: Amlodipine, aspirin, Coreg, glimepiride, heparin, and sodium chloride. Home meds are eyedrops, and he was on IV fluids. At this time, he is also on lactobacillus, and he is also on losartan. PHYSICAL EXAMINATION: GENERAL: He is alert, awake. VITAL SIGNS: I find his temperature is 99.9, pulse is 89, blood pressure 143/68, respirations are 18. HEENT: Head is atraumatic, normocephalic. Eyes are status post surgery. Eye movements are unremarkable. Mucous membrane is dry. Tongue is dry. NECK: Supple. JVP is flat. LUNGS: Clear. No crackles or rales or rhonchi heard. HEART: S1, S2 regular. No murmurs present. ABDOMEN: Soft but bowel sounds are gurgling, and there is vague diffuse tenderness. EXTREMITIES: Have no edema, clubbing, or cyanosis. NEUROLOGIC: He is alert, oriented x3, and he is moving all his extremities. SKIN: There is no skin rash. LABORATORY DATA: His labs are noted. Labs show white count is 10, hemoglobin 11.1, hematocrit 32.2, platelet count is 290. Sodium is 136, potassium 4.9, chlorides are 109, CO2 is 18, and BUN is 26. His creatinine was 1.5, and before it was 1.9. Glucose is 115. UA shows 2+ protein, 3+ blood, rbc 25, hyaline cast is 3-5. So he had some proteinuria, has blood in the urine and hyaline cast 3-5. Also when I saw him, he recalled for a chest x-ray as it was pending, and he had abdominal pelvic CT and stool studies have been ordered by GI and I supplemented with some more tests at this time and I am going to look. No bowel obstruction or mesenteric edema is appreciated. There are few small ventral abdominal hernias appreciated including the umbilical and supraumbilical local midline anterior abdominal wall with most cephalad involving a very short segment of bowel without incarceration. No obvious CT pattern of colitis and the stomach is distended. Mesenteric fat with the similar small supraumbilical hernia. There is a supraumbilical hernia but no incarceration present. There is no CT evidence of colitis. ASSESSMENT AND PLAN: So at this time, we will treat him for infectious etiology, started him on Cipro on a lower dose as his creatinine is high, and we will follow. He is on Cipro 400 IV every 12 hours and Flagyl 500 every 8 hours. We will follow stool studies. He is also on and we will monitor with the GI as well as Dr. Akers. Chest x-ray report is pending. Septic workup is pending. Stool studies are pending at this time. Anton Cain MD
[2017-11-18] MEDS: metroNIDAZOLE IV 500 mg/100 ml 500 MG/100 ML BAG IVPB SCH ×3 (05:03→22:01)
[2017-11-18 06:45] LABS: BASO % 0.5 % (0.0-2.0); EOS % 0.3 % (0.0-4.0); HEMOGLOBIN 10.1 g/dL (12.0-18.0); LYMPH # 1.5 K/uL (1.0-4.3); MEAN CELL VOLUME 94.6 fL (80.0-94.0); MEAN CORPUSCULAR HEMOGLOBIN 32.8 pg (27.0-31.0); MEAN CORPUSCULAR HGB CONC 34.6 g/dL (33.0-37.0); MEAN PLATELET VOLUME 7.1 fL (7.2-11.7); MONO # 1.2 K/uL (0.0-0.8); MONO % 17.9 % (0.0-10.0); NEUT # 3.7 K/uL (1.8-7.0); NEUT % 57.3 % (50.0-75.0); RBC 3.07 Mil/uL (4.40-5.90); WHITE BLOOD COUNT 6.4 K/uL (4.8-10.8)
[2017-11-18 06:47] LABS: ALB/GLOB RATIO 0.8 (1.0-2.1); ALT/SGPT 16 U/L (21-72); AST/SGOT 17 U/L (17-59); BLOOD UREA NITROGEN 15 mg/dL (9-20); CALCIUM 8.5 mg/dl (8.6-10.4); GFR AFRICAN-AMERICAN > 60; GFR NON-AFRICAN AMERICAN 58
--- NOTE | 2017-11-18 08:34 | CP.PCM.PN ---
<Jean Paul Gregory - Last Filed: 11/18/17 08:30> Subjective - Date & Time of Evaluation Date of Evaluation: 11/18/17 Time of Evaluation: 06:15 - Subjective Subjective: PGY5 GI Fellow Progress Note Patient seen and examined bedside this morning. The patient states that he had no episodes of loose stool overnight. Only had liquid diet yesterday, eager to try more solid food today. Denies any nausea, vomiting. Still admits to chills, bloating and excessive flatus. 12 system ROS performed and negative except where stated. Objective - Vital Signs/Intake and Output Vital Signs (last 24 hours): Temp Pulse Resp BP Pulse Ox 97.9 F 70 18 106/58 L 97 11/18/17 07:05 11/18/17 07:05 11/18/17 07:05 11/18/17 07:05 11/18/17 07:05 Intake and Output: 11/18/17 11/18/17 06:59 18:59 Intake Total 1900 Output Total 1575 Balance 325 - Medications Medications: Current Medications Amlodipine Besylate (Norvasc) 5 mg PO DAILY COUNT [facility]CLUDES [facility] Last Admin: 11/17/17 21:52 Dose: 5 mg Aspirin (Aspirin Chewable) 81 mg PO DAILY [facility] Last Admin: 11/17/17 13:38 Dose: 81 mg Carvedilol (Coreg) 25 mg PO BID COUNT [facility]CLUDES [facility] Last Admin: 11/17/17 17:34 Dose: 25 mg Glimepiride (Amaryl) 1 mg PO DAILY [facility] Last Admin: 11/17/17 10:52 Dose: 1 mg Heparin Sodium (Porcine) (Heparin) 5,000 units SC Q12 COUNT [facility]CLUD[facility] Last Admin: 11/17/17 21:50 Dose: 5,000 units Home Med (Patient's Own Drops) 0 drop OU HS COUNT [facility]CLUDES [facility] Last Admin: 11/17/17 21:53 Dose: 1 drop Sodium Chloride (Sodium Chloride 0.45%) 1,000 mls @ 80 mls/hr IV .[id number] COUNT [facility]CLUDES [facility] Last Admin: 11/17/17 21:53 Dose: 80 mls/hr Ciprofloxacin (Cipro 200mg/100ml D5w) 100 mls @ 67 mls/hr IVPB Q12H COUNT [facility]CLUD[facility] PRN Reason: Protocol Last Admin: 11/18/17 02:59 Dose: 67 mls/hr Metronidazole (Flagyl) 500 mg in 100 mls @ 100 mls/hr IVPB Q8 [facility] PRN Reason: Protocol Last Admin: 11/18/17 05:03 Dose: 100 mls/hr Lactobacillus Acidophilus (Bacid Acidophilus) 1 cap PO BID COUNT [facility]CLUDES [facility] Last Admin: 11/17/17 17:34 Dose: 1 cap Losartan Potassium (Cozaar) 50 mg PO DAILY [facility] Last Admin: 11/17/17 10:52 Dose: 50 mg - Labs Labs: 11/18/17 06:23 11/18/17 06:23 - Constitutional Appears: Non-toxic, No Acute Distress - Eye Exam Eye Exam: EOMI, PERRL - ENT Exam ENT Exam: Mucous Membranes Moist - Respiratory Exam Respiratory Exam: Clear to Ausculation Bilateral. absent: Rales, Rhonchi, Wheezes - Cardiovascular Exam Cardiovascular Exam: RRR, +S1, +S2 - GI/Abdominal Exam GI & Abdominal Exam: Soft, Normal Bowel Sounds. absent: Distended, Firm, Guarding, Rigid, Tenderness, Organomegaly - Extremities Exam Extremities Exam: Normal Inspection. absent: Pedal Edema - Neurological Exam Neurological Exam: Alert, Awake, Oriented x3 - Psychiatric Exam Psychiatric exam: Normal Affect, Normal Mood - Skin Skin Exam: Dry, Warm Assessment and Plan - Assessment and Plan (Free Text) Assessment: Patient is a 77yo male with PMHx significant for DM, CAD s/p CABG and PCI, complicated diverticulitis s/p partial colectomy who presented to the hospital for persistent diarrhea and weight loss -Chronic diarrhea, suspcet traveler's diarrhea given history of recent trip to [facility] -Unintentional weight loss -H/O complicated diverticulitis with partial colectomy -DM -CAD Plan: -Stool infectious work up: Culture, C diff, giardia, O&P, Salmonella -Awaiting fecal leukocytes, osmolality and electrolytes -CT A/P with PO contrast reviewed - unremarkable for current disease process -Agree with continuing Cipro/Flagyl as ordered -Advance to lactose free, bland diet -Symptomatic treatment -If symptoms do not continue to improve, consider EGD/Colonoscopy next week <Neymar Caldwell - Last Filed: 11/18/17 08:38> Objective - Vital Signs/Intake and Output Vital Signs (last 24 hours): Temp Pulse Resp BP Pulse Ox 97.9 F 70 18 106/58 L 97 11/18/17 07:05 11/18/17 07:05 11/18/17 07:05 11/18/17 07:05 11/18/17 07:05 Intake and Output: 11/18/17 11/18/17 06:59 18:59 Intake Total 1900 Output Total 1575 Balance 325 - Medications Medications: Current Medications Amlodipine Besylate (Norvasc) 5 mg PO DAILY COUNT [facility]CLUD[facility] Last Admin: 11/17/17 21:52 Dose: 5 mg Aspirin (Aspirin Chewable) 81 mg PO DAILY COUNT [facility] Last Admin: 11/17/17 13:38 Dose: 81 mg Carvedilol (Coreg) 25 mg PO BID COUNT [facility] Last Admin: 11/17/17 17:34 Dose: 25 mg Glimepiride (Amaryl) 1 mg PO DAILY COUNT [facility] Last Admin: 11/17/17 10:52 Dose: 1 mg Heparin Sodium (Porcine) (Heparin) 5,000 units SC Q12 COUNT [facility]CLUD[facility] Last Admin: 11/17/17 21:50 Dose: 5,000 units Home Med (Patient's Own Drops) 0 drop OU HS COUNT [facility]CLUDES [facility] Last Admin: 11/17/17 21:53 Dose: 1 drop Sodium Chloride (Sodium Chloride 0.45%) 1,000 mls @ 80 mls/hr IV .[id number] COUNT [facility]CLUDES [facility] Last Admin: 11/17/17 21:53 Dose: 80 mls/hr Ciprofloxacin (Cipro 200mg/100ml D5w) 100 mls @ 67 mls/hr IVPB Q12H COUNT [facility]CLUDES [facility] PRN Reason: Protocol Last Admin: 11/18/17 02:59 Dose: 67 mls/hr Metronidazole (Flagyl) 500 mg in 100 mls @ 100 mls/hr IVPB Q8 COUNT [facility]CLUDES [facility] PRN Reason: Protocol Last Admin: 11/18/17 05:03 Dose: 100 mls/hr Lactobacillus Acidophilus (Bacid Acidophilus) 1 cap PO BID COUNT [facility]CLUDES [facility] Last Admin: 11/17/17 17:34 Dose: 1 cap Losartan Potassium (Cozaar) 50 mg PO DAILY COUNT [facility]CLUD[facility] Last Admin: 11/17/17 10:52 Dose: 50 mg - Labs Labs: 11/18/17 06:23 11/18/17 06:23 Attending/Attestation - Attestation I have personally seen and examined this patient.: Yes I have fully participated in the care of the patient.: Yes I have reviewed all pertinent clinical information, including history, physical exam and plan: Yes Notes (Text): 11/18/17 08:36 77 year old male with DM, CAD s/p CABG, diverticulitis s/p partial resection a/ w chronic diarrhea. On empiric abx and improving. CT negative. So far infectious workup negative. Stool studies still pending. Suspect travelers diarrhea. Consider outpatient elective egd/colon as was already planned.
[2017-11-18] MEDS: Lactobacillus Acidophilus 500 MU Cap PO SCH ×2 (10:05→17:19)
[2017-11-18] MEDS: Sodium Chloride 0.45% 1,000 ML IV SCH (15:30)
[2017-11-18 16:46] VITALS: RESP 20
--- NOTE | 2017-11-18 18:29 | CP.PCM.PN ---
Subjective - Date & Time of Evaluation Date of Evaluation: 11/18/17 Time of Evaluation: 18:15 - Subjective Subjective: -patient had 3 bowel movements so far- still watery but much less often than yesterday -afebrile, no abdominal pain, no nausea or vmiting -on regular diet now and seems to tolerate well. Appetite much improved. -Labs noted- BUN/creatinine back to normal -Accuchecks- blood sugars low- glimepiride held this morning Objective - Vital Signs/Intake and Output Vital Signs (last 24 hours): Temp Pulse Resp BP Pulse Ox 97.9 F 69 20 139/70 98 11/18/17 15:45 11/18/17 15:45 11/18/17 15:45 11/18/17 17:19 11/18/17 15:45 Intake and Output: 11/18/17 11/18/17 06:59 18:59 Intake Total 1900 Output Total 1575 Balance 325 - Medications Medications: Current Medications Amlodipine Besylate (Norvasc) 5 mg PO DAILY [facility] Last Admin: 11/18/17 10:11 Dose: Not Given Aspirin (Aspirin Chewable) 81 mg PO DAILY [facility] Last Admin: 11/18/17 10:07 Dose: 81 mg Carvedilol (Coreg) 25 mg PO BID [facility] Last Admin: 11/18/17 17:19 Dose: 25 mg Glimepiride (Amaryl) 1 mg PO DAILY [facility] Last Admin: 11/18/17 10:09 Dose: Not Given Heparin Sodium (Porcine) (Heparin) 5,000 units SC Q12 [facility] Last Admin: 11/18/17 10:05 Dose: 5,000 units Home Med (Patient's Own Drops) 0 drop OU HS [facility] Last Admin: 11/17/17 21:53 Dose: 1 drop Sodium Chloride (Sodium Chloride 0.45%) 1,000 mls @ 80 mls/hr IV .[id number] [facility] Last Admin: 11/18/17 15:30 Dose: Not Given Ciprofloxacin (Cipro 200mg/100ml D5w) 100 mls @ 67 mls/hr IVPB Q12H [facility] PRN Reason: Protocol Last Admin: 11/18/17 15:00 Dose: 67 mls/hr Metronidazole (Flagyl) 500 mg in 100 mls @ 100 mls/hr IVPB Q8 [facility] PRN Reason: Protocol Last Admin: 11/18/17 13:27 Dose: 100 mls/hr Lactobacillus Acidophilus (Bacid Acidophilus) 1 cap PO BID [facility] Last Admin: 11/18/17 17:19 Dose: 1 cap Losartan Potassium (Cozaar) 50 mg PO DAILY [facility] Last Admin: 11/18/17 10:05 Dose: 50 mg - Labs Labs: 11/18/17 06:23 11/18/17 06:23 - Head Exam Head Exam: NORMOCEPHALIC - Eye Exam Eye Exam: Normal appearance, PERRL - ENT Exam ENT Exam: Mucous Membranes Moist - Cardiovascular Exam Cardiovascular Exam: REGULAR RHYTHM, +S1, +S2 - GI/Abdominal Exam GI & Abdominal Exam: Soft, Normal Bowel Sounds - Extremities Exam Extremities Exam: Normal Inspection - Neurological Exam Neurological Exam: Alert, Awake, Oriented x3 Assessment and Plan (1) Diarrhea of presumed infectious origin Status: Acute (2) Dehydration Status: Acute (3) Prerenal azotemia Status: Acute (4) Type 2 diabetes mellitus Status: Chronic (5) CAD (coronary artery disease) Status: Chronic (6) Hypertension Status: Chronic
[2017-11-18] MEDS: BIMATOPROST OU SCH (22:02)
[2017-11-19 00:35] VITALS: O2SAT 96
[2017-11-19] MEDS: Ciprofloxacin 200mg/100ml D5W 100 ML IVPB SCH (03:03)
[2017-11-19] MEDS: metroNIDAZOLE IV 500 mg/100 ml 500 MG/100 ML BAG IVPB SCH (05:25)
[2017-11-19] MEDS: Sodium Chloride 0.45% 1,000 ML IV SCH (07:20)
--- NOTE | 2017-11-19 07:51 | CP.PCM.PN ---
Subjective - Date & Time of Evaluation Date of Evaluation: 11/19/17 Time of Evaluation: 07:46 - Subjective Subjective: Patient seen and examined, resting in bed comfortably. No acute events overnight, he endorses two episodes of non-bloody loose bowel movements overnight though becoming more formed in consistency compared to prior. He denies abdominal pain, nausea, vomiting, fever/chills. Tolerating PO diet without difficulty. Review of vitals from today are normal. 12 point review of systems performed, negative aside from mentioned above. Objective - Vital Signs/Intake and Output Vital Signs (last 24 hours): Temp Pulse Resp BP Pulse Ox 98.8 F 84 20 139/63 96 11/19/17 05:26 11/18/17 23:05 11/18/17 23:05 11/18/17 23:05 11/18/17 23:05 Intake and Output: 11/19/17 11/19/17 06:59 18:59 Intake Total 1740 Output Total 602 Balance 1138 - Medications Medications: Current Medications Amlodipine Besylate (Norvasc) 5 mg PO DAILY [facility] Last Admin: 11/18/17 22:01 Dose: 5 mg Aspirin (Aspirin Chewable) 81 mg PO DAILY [facility] Last Admin: 11/18/17 10:07 Dose: 81 mg Carvedilol (Coreg) 25 mg PO BID [facility] Last Admin: 11/18/17 17:19 Dose: 25 mg Glimepiride (Amaryl) 1 mg PO DAILY [facility] Last Admin: 11/18/17 10:09 Dose: Not Given Heparin Sodium (Porcine) (Heparin) 5,000 units SC Q12 [facility] Last Admin: 11/18/17 22:01 Dose: 5,000 units Home Med (Patient's Own Drops) 0 drop OU HS [facility] Last Admin: 11/18/17 22:02 Dose: 1 drop Sodium Chloride (Sodium Chloride 0.45%) 1,000 mls @ 80 mls/hr IV .[id number] [facility] Last Admin: 11/18/17 15:30 Dose: Not Given Ciprofloxacin (Cipro 200mg/100ml D5w) 100 mls @ 67 mls/hr IVPB Q12H [facility] PRN Reason: Protocol Last Admin: 11/19/17 03:03 Dose: 67 mls/hr Metronidazole (Flagyl) 500 mg in 100 mls @ 100 mls/hr IVPB Q8 [facility] PRN Reason: Protocol Last Admin: 11/19/17 05:25 Dose: 100 mls/hr Lactobacillus Acidophilus (Bacid Acidophilus) 1 cap PO BID [facility] Last Admin: 11/18/17 17:19 Dose: 1 cap Losartan Potassium (Cozaar) 50 mg PO DAILY [facility] Last Admin: 11/18/17 10:05 Dose: 50 mg - Labs Labs: 11/18/17 06:23 11/18/17 06:23 - Constitutional Appears: Non-toxic, No Acute Distress - Head Exam Head Exam: NORMAL INSPECTION - Eye Exam Eye Exam: EOMI - ENT Exam ENT Exam: Mucous Membranes Moist - Respiratory Exam Respiratory Exam: Clear to Ausculation Bilateral - Cardiovascular Exam Cardiovascular Exam: REGULAR RHYTHM, +S1, +S2 - GI/Abdominal Exam GI & Abdominal Exam: Soft, Normal Bowel Sounds Additional comments: non tender to palpation in four quadrants - Extremities Exam Extremities Exam: Normal Inspection - Skin Skin Exam: Dry, Intact, Normal Color, Warm Assessment and Plan - Assessment and Plan (Free Text) Assessment: DM CAD / CABG Weight loss Persistent diarrhea - infectious workup negative thus far, potential traveller' s diarrhea given clinical scenario, though time duration of diarrhea has been longer than typical cases. Improvement in bowel frequency and stool consistency noted following antibiotic therapy. Plan: - Diet as tolerated - Continue with antibiotic therapy, follow up ID recommendations - No further planned interventions, from GI perspective ok to discharge patient home with outpatient follow up. He will require elective EGD/colonoscopy for further evaluation, office contact information provided to patient. Will sign off case, please reconsult as necessary. Telephone message left for Dr. Akers.
[2017-11-19 08:20] VITALS: PULSE 69; TEMP 98
[2017-11-19 09:11] VITALS: BP 120/60
[2017-11-19] MEDS: Lactobacillus Acidophilus 500 MU Cap PO SCH (09:15)
--- NOTE | 2017-11-19 11:59 | CP.PCM.DIS ---
Provider - Provider Date of Admission: 11/17/17 14:46 Attending physician: Lori Macario MD Consults: Dr. Ceballos, Dr. Emily Cain Time Spent in preparation of Discharge (in minutes): 45 Diagnosis - Discharge Diagnosis (1) Diarrhea of presumed infectious origin Status: Acute (2) Dehydration Status: Acute (3) Prerenal azotemia Status: Acute (4) Type 2 diabetes mellitus Status: Chronic (5) CAD (coronary artery disease) Status: Chronic (6) Hypertension Status: Chronic Hospital Course - Lab Results Lab Results: Micro Results 11/17/17 14:45 Urine,Clean Catch Urine Culture - Final No Growth (<1,000 CFU/ML) 11/16/17 10:30 Stool Stool Culture - Final NO SALMONELLA, SHIGELLA OR CAMPYLOBACTER ISOLATED. 11/17/17 16:30 Blood-Venous Blood Culture - Preliminary NO GROWTH AFTER 24 HOURS 11/17/17 16:30 Blood-Venous Blood Culture - Preliminary NO GROWTH AFTER 24 HOURS 11/17/17 10:30 Stool Ova and Parasite Concentrate Exam - Final Most Recent Lab Values WBC 6.4 K/uL (4.8-10.8) 11/18/17 06:23 RBC 3.07 Mil/uL (4.40-5.90) L 11/18/17 06:23 Hgb 10.1 g/dL (12.0-18.0) L 11/18/17 06:23 Hct 29.0 % (35.0-51.0) L 11/18/17 06:23 MCV 94.6 fL (80.0-94.0) H 11/18/17 06:23 MCH 32.8 pg (27.0-31.0) H 11/18/17 06:23 MCHC 34.6 g/dL (33.0-37.0) 11/18/17 06:23 RDW 13.0 % (11.5-14.5) 11/18/17 06:23 Plt Count 242 K/uL (130-400) 11/18/17 06:23 MPV 7.1 fL (7.2-11.7) L 11/18/17 06:23 Neut % (Auto) 57.3 % (50.0-75.0) 11/18/17 06:23 Lymph % (Auto) 24.0 % (20.0-40.0) 11/18/17 06:23 [place] % (Auto) 17.9 % (0.0-10.0) H 11/18/17 06:23 Eos % (Auto) 0.3 % (0.0-4.0) 11/18/17 06:23 Baso % (Auto) 0.5 % (0.0-2.0) 11/18/17 06:23 Neut # (Auto) 3.7 K/uL (1.8-7.0) 11/18/17 06:23 Lymph # (Auto) 1.5 K/uL (1.0-4.3) 11/18/17 06:23 [place] # (Auto) 1.2 K/uL (0.0-0.8) H 11/18/17 06:23 Eos # (Auto) 0.0 K/uL (0.0-0.7) 11/18/17 06:23 Baso # (Auto) 0.0 K/uL (0.0-0.2) 11/18/17 06:23 ESR 123 mm/hr (0-15) H 11/18/17 06:23 Sodium 141 mmol/L (132-148) 11/18/17 06:23 Potassium 4.7 mmol/L (3.6-5.2) 11/18/17 06:23 Chloride 110 mmol/L (98-107) H 11/18/17 06:23 Carbon Dioxide 18 mmol/L (22-30) L 11/18/17 06:23 Anion Gap 17 (10-20) 11/18/17 06:23 BUN 15 mg/dL (9-20) 11/18/17 06:23 Creatinine 1.2 mg/dL (0.8-1.5) 11/18/17 06:23 Est GFR ( Amer) > 60 11/18/17 06:23 Est GFR (Non-Af Amer) 58 11/18/17 06:23 POC Glucose (mg/dL) 106 mg/dL (65-110) 11/19/17 11:34 Random Glucose 106 mg/dL (75-110) 11/18/17 06:23 Hemoglobin A1c 6.2 % (4.2-6.5) 11/17/17 07:27 Calcium 8.5 mg/dl (8.6-10.4) L 11/18/17 06:23 Total Bilirubin 0.5 mg/dL (0.2-1.3) 11/18/17 06:23 AST 17 U/L (17-59) 11/18/17 06:23 ALT 16 U/L (21-72) L 11/18/17 06:23 Alkaline Phosphatase 62 U/L (38-126) 11/18/17 06:23 Total Protein 6.6 g/dL (6.3-8.3) 11/18/17 06:23 Albumin 3.0 g/dL (3.5-5.0) L 11/18/17 06:23 Globulin 3.6 gm/dL (2.2-3.9) 11/18/17 06:23 Albumin/Globulin Ratio 0.8 (1.0-2.1) L 11/18/17 06:23 Lipase 248 U/L (23-300) 11/16/17 23:55 Carcinoembryonic Ag 0.8 ng/mL (0-3.0) 11/18/17 06:23 Free T4 0.86 ng/dL (0.78-2.19) 11/17/17 07:27 TSH 3rd Generation 0.79 mIU/L (0.46-4.68) 11/17/17 07:27 Urine Color Colorless (YELLOW) 11/17/17 16:05 Urine Clarity Clear (Clear) 11/17/17 16:05 Urine pH 5.0 (5.0-8.0) 11/17/17 16:05 Ur Specific [place] 1.003 (1.003-1.030) 11/17/17 16:05 Urine Protein 1+ mg/dL (NEGATIVE) H 11/17/17 16:05 Urine Glucose (UA) Normal mg/dL (Normal) 11/17/17 16:05 Urine Ketones Negative mg/dL (NEGATIVE) 11/17/17 16:05 Urine Blood 3+ (NEGATIVE) H 11/17/17 16:05 Urine Nitrate Negative (NEGATIVE) 11/17/17 16:05 Urine Bilirubin Negative (NEGATIVE) 11/17/17 16:05 Urine Urobilinogen Normal mg/dL (0.2-1.0) 11/17/17 16:05 Ur Leukocyte Esterase Neg Nicol/uL (Negative) 11/17/17 16:05 Urine WBC (Auto) < 1 /hpf (0-5) 11/17/17 16:05 Urine RBC (Auto) 13 /hpf (0-3) H 11/17/17 16:05 Ur Squamous Epith Cells < 1 /hpf (0-5) 11/17/17 16:05 Urine Bacteria Rare (<OCC) 11/17/17 06:57 Hyaline Casts 0-2 /lpf (0-2) 11/17/17 16:05 Stool Leukocytes, Qual Negative (NEGATIVE) 11/17/17 10:30 C. difficile Ag & Toxin Negative (NEGATIVE) 11/17/17 10:30 Discharge Exam - Head Exam Head Exam: NORMAL INSPECTION Discharge Plan - Follow Up Plan Condition: FAIR Disposition: HOME/ ROUTINE Instructions: Diarrhea in Adolescents and Adults, Dehydration, Adult (DC), Coronary Heart Disease (DC) Additional Instructions: Continue Cipro and Flagyl for 5 more days. Continue Bacid BID. Office appt in 10 days.
== END 2017-11-19 13:21 | disposition home or self-care (01) | DRG 392 ==
LOC: C.ER 23:03 → C.6T 11-17 00:28 → OBSVTOIN 11-17 14:46
PROVIDERS: ADMIT Internal Medicine Cardiovascular Disease; ATTEND Internal Medicine Cardiovascular Disease
DX: A09 Infectious gastroenteritis and colitis, unspecified (principal); E86.0 Dehydration; E11.22 Type 2 diabetes mellitus with diabetic chronic kidney disease; E78.00 Pure hypercholesterolemia, unspecified; E78.5 Hyperlipidemia, unspecified; H40.9 Unspecified glaucoma; I25.10 Atherosclerotic heart disease of native coronary artery without angina pectoris; Z80.1 Family history of malignant neoplasm of trachea, bronchus and lung; Z85.038 Personal history of other malignant neoplasm of large intestine; Z87.891 Personal history of nicotine dependence; Z86.010 Personal history of colon polyps; Z90.49 Acquired absence of other specified parts of digestive tract; Z95.1 Presence of aortocoronary bypass graft; Z98.61 Coronary angioplasty status; I12.9 Hypertensive chronic kidney disease with stage 1 through stage 4 chronic kidney disease, or unspecified chronic kidney disease; N18.9 Chronic kidney disease, unspecified

== ENCOUNTER 2017-12-22 07:35 | Day surgery (SDC) | payer MEDICARE, MEDICAID ==
[2017-12-22] MEDS ORDERED: Propofol 10 mg/ml Inj (20 ML) ONE (10:16)
[2017-12-22] MEDS ORDERED: Lactated Ringer's 1,000 ML IV ONE (10:22)
[2017-12-22 10:59] VITALS: TEMP 98.4
[2017-12-22 11:06] VITALS: O2SAT 98
[2017-12-22 12:29] VITALS: BP 124/57; PULSE 50; RESP 13
== END 2017-12-22 12:00 | disposition home or self-care (01) ==
LOC: C.ENDO 07:35
PROVIDERS: ATTEND Internal Medicine Gastroenterology
DX: R10.13 Epigastric pain (principal); R19.4 Change in bowel habit; K64.0 First degree hemorrhoids; K57.30 Diverticulosis of large intestine without perforation or abscess without bleeding; K29.70 Gastritis, unspecified, without bleeding